=== PATIENT | female | born 1980 | race Caucasian/White ===

== ENCOUNTER → 2016-07-25 | Outpatient (CLI) | payer BC ==
[~2016-07-25] MED LIST: ADVIL 200MG TA200 MG PO; ANTIVERT 25MG25 MG PO; ASPIRIN 32325 MG/TAB PO; ASPIRIN E.C. 8181 MG PO; BUSPIRONE; BUSPIRONE5 MG PO; CEPHALEXIN; CLONAZEPAM PO; COLACE100 MG/10 PO; CYCLOBENZAPRINE10 MG PO; CYMBALTA 60MG60 MG PO; CYMBALTA30 M1 PO; CYMBALTA30 MG PO; DEPAKOTE250 MG PO; EAR DROPS; ECOTRIN325 MG PO; EFFEXOR PO; ENALAPRIL MALEA PO; ENALAPRIL10 MG PO; ENALAPRIL2.5 MG PO; FLEXERIL 1010 MG/TAB PO; FLEXERIL10 MG PO; FLONASE NASAL S16 GM NS; FLOVENT0.22 MG/AC IH; FLUTICASON0.05 MG/Ac NS; FORTAMET1000 MG PO; GLUCOPHAGE1000 MG PO; HCTZ 25MG25 MG PO; HUMULIN 70/3100 U/ML IJ; INNOPRAN XL80 MG PO; INSULIN; IUD; LAMICTAL 100MG100 MG PO; LAMICTAL 25MG T25 MG PO; LAMICTAL150 MG PO; LANTUS100 U/ML SC; LANTUS100 U/ML SQ; LASIX 40MG TABL40 MG PO; LORTAB 5/500 501 TAB PO; LYRICA 150MG C150 MG PO; LYRICA25 MG PO; METFORMIN1000 MG PO; MIDRIN PO; MIRALAX 17GM PK1 PKT PO; MIRENA52 MG IU; MOOD STABILIZER; MS CONTIN30 MG PO; MULTIPLE VITAMI1 TAB PO; NORCO 325 MG-51 TAB PO; NORCO 325 MG-7.1 TAB PO; NORCO PO; NOVOLIN R100 U/ML SQ; NOVOLOG 100U100 U/M1; NOVOLOG 100U100 U/M1 SQ; NOVOLOG FLEX100 U/ML SC; NOVOLOG FLEX100 U/ML SQ; NOVOLOG MIX 70/10 ML SC; NOVOLOG100 U/ML SC; PERCOCET 325 MG1 TA2 PO; PERCOCET 5/321 UDTAB PO; PHENERGAN 25 TA25 MG PO; PRENATAL VITAMI1 TA5 PO; PRENATAL1 TA1 PO; PRINZIDE 12.5 M1 TAB PO; PROTONIX 40MG T40 MG PO; PROVENTIL0.09 MG/A1; PROVENTIL0.09 MG/A1 IH; PULMICORT0.5 MG/21 IH; RT ADVAIR 228 DISKUS IH; SINGULAIR10 MG PO; SUMAVEL DO6 MG/0.5 M SC; TRAZADONE HYDR100 MG PO; VALIUM5 MG PO; VASOTEC5 MG PO; VIT D; WELLBUTRIN SR150 M1 PO; ZITHROMAX 250M250 MG PO; ZOFRAN 4MG T4 MG/TAB PO; lantus
== END ==
LOC: BHSO 14:57
DX: F31.81 Bipolar II disorder (principal)

== ENCOUNTER → 2016-08-29 | Outpatient (CLI) | payer BC | LOC: BHSO 14:44 | DX: F31.81 Bipolar II disorder (principal) ==

== ENCOUNTER → 2016-09-12 | Outpatient (CLI) | payer BC | LOC: BHSO 13:14 | DX: F31.32 Bipolar disorder, current episode depressed, moderate (principal) ==

== ENCOUNTER → 2016-10-13 | Outpatient (CLI) | payer BC | LOC: BHSO 13:21 | DX: F31.31 Bipolar disorder, current episode depressed, mild (principal) ==

== ENCOUNTER → 2016-11-21 | Outpatient (CLI) | payer BC | LOC: BHSO 14:02 | DX: F31.31 Bipolar disorder, current episode depressed, mild (principal) ==

== ENCOUNTER → 2016-12-05 | Outpatient (CLI) | payer BC | LOC: BHSO 14:00 | DX: F43.10 Post-traumatic stress disorder, unspecified (principal) ==

== ENCOUNTER → 2017-02-27 | Outpatient (CLI) | payer BC | LOC: BHSO 15:21 | DX: F41.0 Panic disorder [episodic paroxysmal anxiety] (principal) ==

== ENCOUNTER → 2017-03-06 | Outpatient (CLI) | payer BC | LOC: BHSO 13:46 | DX: F31.31 Bipolar disorder, current episode depressed, mild (principal) ==

== ENCOUNTER → 2017-04-03 | Outpatient (CLI) | payer BC | LOC: BHSO 13:53 | DX: F31.31 Bipolar disorder, current episode depressed, mild (principal) ==

== ENCOUNTER → 2017-04-17 | Outpatient (CLI) | payer BC | LOC: BHSO 14:04 | DX: F31.31 Bipolar disorder, current episode depressed, mild (principal) ==

== ENCOUNTER → 2017-06-12 | Outpatient (CLI) | payer BC | LOC: BHSO 13:48 | DX: F41.1 Generalized anxiety disorder (principal) ==

== ENCOUNTER → 2017-10-08 | Outpatient (CLI) | payer BC ==
[~2017-10-08] MED LIST changes: +GEODON80 MG PO; +LAMICTAL200 MG PO; +MAXZIDE-25MG TA1 TAB PO; +NAPROXEN 3375 MG/TAB PO; +PRINIVIL5 MG PO; +TRESIBA FL200 UNIT/1 SQ
== END ==
LOC: COL.LAB 10:47
DX: I20.9 Angina pectoris, unspecified (principal)

== ENCOUNTER → 2017-12-13 | Outpatient (CLI) | payer BC ==
[2017-12-13 09:38] LABS: BASO % 0.4 % (0.0-2.0); EOS # 0.1 (0.0-0.7); EOS % 0.5 % (0-4.0); GRAN % 64.1 % (42.2-75.2); HEMATOCRIT 42.3 % (37.0-47.0); HEMOGLOBIN 13.4 g/dl (12.5-16.0); LYMPH # 2.7 (1.2-3.4); LYMPH % 28.4 % (20.0-51.0); MEAN CELL VOLUME 83 fl (80.0-100.0); MEAN CORPUSCULAR HEMOGLOBIN 26 pg (27.0-31.0); MEAN CORPUSCULAR HGB CONC 32 g/dl (33.0-37.0); MEAN PLATELET VOLUME 11.1 fl (7.4-10.4); MONO # 0.6 (0.1-0.6); MONO % 6.3 % (1.7-9.3); PLATELET COUNT 305 K/mm3 (130-400); RED BLOOD COUNT 5.07 M/mm3 (4.10-5.30); REDCELL DISTRIBUTION WIDTH-CV 13.4 % (11.5-14.5)
[2017-12-13 09:47] LABS: ALANINE AMINOTRANSFERASE 27 U/L (9-52); ALBUMIN 3.7 gm/dL (3.5-5.0); ALKALINE PHOSPHATASE 84 U/L (50-136); ANION GAP 10 mmol/L (7-16); AST,SGOT 20 U/L (15-37); BILIRUBIN,TOTAL 0.7 mg/dL (0.0-1.0); BLOOD UREA NITROGEN 11 mg/dL (7-17); CALCIUM 9.2 mg/dL (8.4-10.2); CARBON DIOXIDE 27 mmol/L (22-30); CHLORIDE 102 mmol/L (98-107); CREATININE, serum 0.55 mg/dL (0.52-1.25); GLUCOSE 201 mg/dL (74-106); LIPASE 53 U/L (23-300); POTASSIUM 4.3 mmol/L (3.4-5.0); SODIUM 140 mmol/L (137-145); TOTAL PROTEIN 7.5 gm/dL (6.4-8.2)
[2017-12-13 09:52] LABS: ACETONE,SERUM NEGATIVE
[2017-12-13 09:54] LABS: OSMOLALITY-SERUM 298 Osm/kg (275-300)
[2017-12-13 12:46] LABS: CHOLESTEROL 181 mg/dL (120-200); CHOLESTEROL RISK RATIO 4.4; HDL CHOLESTEROL 41 mg/dL; LDL CHOLESTEROL 107 mg/dL; TRIGLYCERIDE 163 mg/dL
== END ==
LOC: COL.LAB 08:49
PROVIDERS: Family Medicine
DX: R10.30 Lower abdominal pain, unspecified (principal); E11.65 Type 2 diabetes mellitus with hyperglycemia

== ENCOUNTER → 2017-12-20 | Outpatient (CLI) | payer BC | LOC: COL.RAD 12-19 12:00 | DX: R10.2 Pelvic and perineal pain (principal); R11.2 Nausea with vomiting, unspecified; Z97.5 Presence of (intrauterine) contraceptive device; Z90.49 Acquired absence of other specified parts of digestive tract ==

== ENCOUNTER → 2017-12-28 | Outpatient (CLI) | payer BC | LOC: COL.RAD 12-24 08:00 | DX: Z01.812 Encounter for preprocedural laboratory examination (principal); M47.819 Spondylosis without myelopathy or radiculopathy, site unspecified; R10.31 Right lower quadrant pain; R10.32 Left lower quadrant pain; E11.65 Type 2 diabetes mellitus with hyperglycemia; Z97.5 Presence of (intrauterine) contraceptive device | CPT/HCPCS: Q9967 ==

== ENCOUNTER → 2018-01-14 | Outpatient (CLI) | payer BC | LOC: COL.RAD 14:37 | DX: M25.474 Effusion, right foot (principal); Z91.81 History of falling ==

== ENCOUNTER → 2018-02-22 | Outpatient (CLI) | payer BC | LOC: BHSO 15:45 | DX: F31.81 Bipolar II disorder (principal) | CPT/HCPCS: G0463 ==

== ENCOUNTER → 2018-04-24 | Outpatient (CLI) | payer BC | LOC: COL.LAB 08:52 | DX: I20.9 Angina pectoris, unspecified (principal) ==

== ENCOUNTER 2018-05-05 19:54 | Observation (INO) | payer BC ==
[2007-12-13 23:17] VITALS: BP 125/87
[~2018-05-05] VITALS: Ht 170.2 cm; Wt 158.8 kg
[2018-05-05 20:18] LABS: BASO # 0.1 (0.0-0.2); BASO % 0.4 % (0.0-2.0); EOS # 0.1 (0.0-0.7); EOS % 0.6 % (0-4.0); GRAN # 8.7 (1.4-6.5); HEMATOCRIT 45.6 % (37.0-47.0); LYMPH # 4.2 (1.2-3.4); LYMPH % 30.2 % (20.0-51.0); MEAN CELL VOLUME 83 fl (80.0-100.0); MEAN CORPUSCULAR HEMOGLOBIN 27 pg (27.0-31.0); MEAN CORPUSCULAR HGB CONC 33 g/dl (33.0-37.0); MEAN PLATELET VOLUME 10.9 fl (7.4-10.4); MONO # 0.9 (0.1-0.6); MONO % 6.4 % (1.7-9.3); PLATELET COUNT 417 K/mm3 (130-400); RED BLOOD COUNT 5.53 M/mm3 (4.10-5.30)
[2018-05-05 20:22] VITALS: BP 124/93; PULSE 114
[2018-05-05 20:34] LABS: ALANINE AMINOTRANSFERASE 29 U/L (9-52); ALBUMIN 4.3 gm/dL (3.5-5.0); ALKALINE PHOSPHATASE 95 U/L (50-136); ANION GAP 10 mmol/L (7-16); AST,SGOT 22 U/L (15-37); BILIRUBIN,TOTAL 0.6 mg/dL (0.0-1.0); BLOOD UREA NITROGEN 15 mg/dL (7-17); CALCIUM 9.9 mg/dL (8.4-10.2); CARBON DIOXIDE 27 mmol/L (22-30); CHLORIDE 99 mmol/L (98-107); CREATININE, serum 0.58 mg/dL (0.52-1.25); GLUCOSE 194 mg/dL (74-106); POTASSIUM 4.4 mmol/L (3.4-5.0); SODIUM 137 mmol/L (137-145); TOTAL PROTEIN 8.5 gm/dL (6.4-8.2)
[2018-05-05 20:48] LABS: TROPONIN-I < 0.012 ng/mL (0.000-0.034)
[2018-05-05 21:24] LABS: COLLECTION METHOD CLEAN CATCH
[2018-05-05 21:32] LABS: MUCOUS Present /lpf; PH 7 (5-8); URINE APPEARANCE Clear; URINE BACTERIA Rare /hpf; URINE BILIRUBIN Negative (NEGATIVE); URINE BLOOD Negative (NEGATIVE); URINE COLOR Straw; URINE GLUCOSE Negative (NEGATIVE); URINE KETONE Negative (NEGATIVE); URINE LEUKOCYTE ESTERASE Negative (NEGATIVE); URINE NITRATE Negative (NEGATIVE); URINE PROTEIN(semi-quant) Negative (NEGATIVE); URINE UROBILINOGEN Negative (NEGATIVE)
[2018-05-05 21:39] LABS: TRICYCLIC ANTIDEPRESS URINE NEGATIVE
[2018-05-05 21:57] LABS: C-REACTIVE PROTEIN 3.2 mg/dL (0.0-0.9)
[2018-05-05] MEDS ORDERED: IMDUR 30MG30 MG/TAB PO (23:27)
[2018-05-06] VITALS (8 sets, daily range): BP systolic 98–119; BP diastolic 51–79; PULSE 94–130; TEMP 97.6–98.3
[2018-05-06] MEDS ORDERED: NOVOLOG 100U100 U/M1 (01:38)
[2018-05-06] MEDS ORDERED: NOVOLOG 100U100 U/M1 SQ ×2 (01:39→01:42)
[2018-05-06] MEDS ORDERED: OZEMPIC1 MG/0.75 SQ (01:44)
[2018-05-06 05:41] LABS: BASO % 0.3 % (0.0-2.0); EOS # 0.1 (0.0-0.7); EOS % 0.6 % (0-4.0); GRAN # 6.7 (1.4-6.5); GRAN % 62.3 % (42.2-75.2); HEMATOCRIT 41.2 % (37.0-47.0); HEMOGLOBIN 13.2 g/dl (12.5-16.0); LYMPH # 3.1 (1.2-3.4); LYMPH % 29.3 % (20.0-51.0); MEAN CELL VOLUME 84 fl (80.0-100.0); MEAN CORPUSCULAR HEMOGLOBIN 27 pg (27.0-31.0); MEAN CORPUSCULAR HGB CONC 32 g/dl (33.0-37.0); MEAN PLATELET VOLUME 10.8 fl (7.4-10.4); MONO # 0.7 (0.1-0.6); MONO % 6.8 % (1.7-9.3); RED BLOOD COUNT 4.91 M/mm3 (4.10-5.30); REDCELL DISTRIBUTION WIDTH-CV 13.2 % (11.5-14.5)
[2018-05-06 05:47] LABS: PLATELET COUNT 314 K/mm3 (130-400)
[2018-05-06 06:01] LABS: CALCIUM 8.9 mg/dL (8.4-10.2); CREATININE, serum 0.59 mg/dL (0.52-1.25); MAGNESIUM 1.6 mg/dL (1.6-2.3); POTASSIUM 3.9 mmol/L (3.4-5.0)
[2018-05-06] MEDS ORDERED: ZOCOR 40MG40 MG PO (09:48)
[2018-05-06] MEDS ORDERED: FLOVENT DI100 MCG/Ac IH (09:51)
[2018-05-06] MEDS ORDERED: ASPIRIN E.C. 8181 MG PO (09:51)
[2018-05-06] MEDS ORDERED: LOPRESSOR 225 MG/TAB PO (09:52)
[2018-05-07] VITALS (11 sets, daily range): BP systolic 96–147; BP diastolic 39–91; PULSE 78–97; TEMP 97.4–97.9
[2018-05-07] MEDS ORDERED: ANTIVERT 25MG25 MG PO (14:40)
== END 2018-05-07 15:54 | disposition home or self-care (01) ==
LOC: COL.ER 19:54 → MEDICAL 23:17
PROVIDERS: Emergency Medicine; Nurse Practitioner
DX: R42 Dizziness and giddiness (principal); R11.2 Nausea with vomiting, unspecified; R00.0 Tachycardia, unspecified; G43.909 Migraine, unspecified, not intractable, without status migrainosus; E87.2 Acidosis; I10 Essential (primary) hypertension; E11.9 Type 2 diabetes mellitus without complications; Z79.4 Long term (current) use of insulin; G47.33 Obstructive sleep apnea (adult) (pediatric); G40.909 Epilepsy, unspecified, not intractable, without status epilepticus; R53.82 Chronic fatigue, unspecified; F41.9 Anxiety disorder, unspecified; F32.9 Major depressive disorder, single episode, unspecified; F31.9 Bipolar disorder, unspecified; F41.0 Panic disorder [episodic paroxysmal anxiety]; Z79.899 Other long term (current) drug therapy; E66.9 Obesity, unspecified
CPT/HCPCS: G0378; G8978-GP; G8979-GP; G8987-GO; G8988-GO; J0780; J1200; J1650; J1815; J1885; J2060; J2405; J2550; J3010; J7030

== ENCOUNTER → 2018-05-13 | Outpatient (CLI) | payer BC, OTHER ==
[~2018-05-13] MED LIST changes: +FLOVENT DI100 MCG/Ac IH; +IMDUR 30MG30 MG/TAB PO; +LOPRESSOR 225 MG/TAB PO; +OZEMPIC1 MG/0.75 SQ; +ZOCOR 40MG40 MG PO
[2018-05-13 16:15] LABS: COLLECTION METHOD CLEAN CATCH
[2018-05-13 16:21] LABS: BASO # 0.1 (0.0-0.2); BASO % 0.4 % (0.0-2.0); EOS # 0.1 (0.0-0.7); EOS % 0.4 % (0-4.0); GRAN # 8.4 (1.4-6.5); GRAN % 68.4 % (42.2-75.2); HEMATOCRIT 43.9 % (37.0-47.0); HEMOGLOBIN 14.4 g/dl (12.5-16.0); LYMPH # 3.1 (1.2-3.4); LYMPH % 24.9 % (20.0-51.0); MEAN CELL VOLUME 82 fl (80.0-100.0); MEAN CORPUSCULAR HEMOGLOBIN 27 pg (27.0-31.0); MEAN CORPUSCULAR HGB CONC 33 g/dl (33.0-37.0); MEAN PLATELET VOLUME 11.1 fl (7.4-10.4); MONO # 0.7 (0.1-0.6); MONO % 5.6 % (1.7-9.3); PLATELET COUNT 337 K/mm3 (130-400); RED BLOOD COUNT 5.34 M/mm3 (4.10-5.30); REDCELL DISTRIBUTION WIDTH-CV 12.8 % (11.5-14.5)
[2018-05-13 16:23] LABS: MUCOUS Present /lpf; PH 6 (5-8); SQUAMOUS EPITHELIAL 0-2 /hpf; URINE APPEARANCE Clear; URINE BACTERIA None Seen /hpf; URINE BILIRUBIN Negative (NEGATIVE); URINE BLOOD 1+ (NEGATIVE); URINE COLOR Yellow; URINE GLUCOSE 3+ (NEGATIVE); URINE KETONE Negative (NEGATIVE); URINE LEUKOCYTE ESTERASE Negative (NEGATIVE); URINE NITRATE Negative (NEGATIVE); URINE PROTEIN(semi-quant) 1+ (NEGATIVE); URINE UROBILINOGEN Negative (NEGATIVE)
[2018-05-13 16:45] LABS: ALANINE AMINOTRANSFERASE 40 U/L (9-52); ALBUMIN 4.3 gm/dL (3.5-5.0); ALKALINE PHOSPHATASE 91 U/L (50-136); ANION GAP 11 mmol/L (7-16); AST,SGOT 23 U/L (15-37); BILIRUBIN,TOTAL 0.7 mg/dL (0.0-1.0); BLOOD UREA NITROGEN 11 mg/dL (7-17); CALCIUM 9.8 mg/dL (8.4-10.2); CARBON DIOXIDE 24 mmol/L (22-30); CHLORIDE 100 mmol/L (98-107); CREATININE, serum 0.54 mg/dL (0.52-1.25); GLUCOSE 216 mg/dL (74-106); POTASSIUM 4.6 mmol/L (3.4-5.0); SODIUM 135 mmol/L (137-145); TOTAL PROTEIN 7.7 gm/dL (6.4-8.2)
[2018-05-13 16:51] LABS: ACETONE,SERUM NEGATIVE
[2018-05-13 16:54] LABS: HEMOGLOBIN A1C 8.7 %
[2018-05-13 17:08] LABS: LACTIC ACID 2.7 mmol/L (0.4-2.0)
[2018-05-13 17:27] LABS: OSMOLALITY-SERUM 288 Osm/kg (275-300)
== END ==
LOC: COL.LAB 15:03
PROVIDERS: Family Medicine
DX: E11.65 Type 2 diabetes mellitus with hyperglycemia (principal)

== ENCOUNTER → 2018-07-03 | Outpatient (CLI) | payer BC | LOC: COL.RAD 09:10 | DX: M25.542 Pain in joints of left hand (principal); M25.541 Pain in joints of right hand; M25.532 Pain in left wrist; M25.531 Pain in right wrist; R70.0 Elevated erythrocyte sedimentation rate; R76.0 Raised antibody titer | CPT/HCPCS: A9503 ==

== ENCOUNTER → 2018-08-22 | Outpatient (CLI) | payer BC | LOC: BHSO 13:52 | DX: F31.81 Bipolar II disorder (principal) | CPT/HCPCS: G0463 ==

== ENCOUNTER → 2018-08-30 | Outpatient (CLI) | payer BC ==
[2018-08-30 10:13] LABS: HEMATOCRIT 43.7 % (37.0-47.0); HEMOGLOBIN 14.3 g/dl (12.5-16.0); MEAN CELL VOLUME 81 fl (80.0-100.0); MEAN CORPUSCULAR HEMOGLOBIN 27 pg (27.0-31.0); MEAN CORPUSCULAR HGB CONC 33 g/dl (33.0-37.0); MEAN PLATELET VOLUME 11.3 fl (7.4-10.4); PLATELET COUNT 300 K/mm3 (130-400); RED BLOOD COUNT 5.38 M/mm3 (4.10-5.30)
[2018-08-30 10:30] LABS: COLLECTION METHOD CLEAN CATCH
[2018-08-30 10:36] LABS: ALBUMIN 4.3 gm/dL (3.5-5.0); BILIRUBIN,TOTAL 0.9 mg/dL (0.0-1.0); CALCIUM 9.8 mg/dL (8.4-10.2); CREATININE, serum 0.59 mg/dL (0.52-1.25); POTASSIUM 3.8 mmol/L (3.4-5.0); TOTAL PROTEIN 8.3 gm/dL (6.4-8.2)
[2018-08-30 10:37] LABS: MUCOUS Present /lpf; PH 5 (5-8); SQUAMOUS EPITHELIAL 0-2 /hpf; URINE APPEARANCE Clear; URINE BACTERIA None Seen /hpf; URINE BILIRUBIN Negative (NEGATIVE); URINE BLOOD Negative (NEGATIVE); URINE COLOR Yellow; URINE GLUCOSE 3+ (NEGATIVE); URINE KETONE Negative (NEGATIVE); URINE LEUKOCYTE ESTERASE Negative (NEGATIVE); URINE NITRATE Negative (NEGATIVE); URINE PROTEIN(semi-quant) Negative (NEGATIVE); URINE UROBILINOGEN Negative (NEGATIVE)
== END ==
LOC: COL.RAD 09:28
PROVIDERS: Physician Assistant Medical
DX: E11.65 Type 2 diabetes mellitus with hyperglycemia (principal); M25.512 Pain in left shoulder; M79.602 Pain in left arm; R55 Syncope and collapse; R11.2 Nausea with vomiting, unspecified; R19.7 Diarrhea, unspecified

== ENCOUNTER 2018-10-14 15:16 | Outpatient (CLI) | payer BC ==
[2007-12-13 23:17] VITALS: BP 125/87
[~2018-10-14] VITALS: Ht 170.2 cm; Wt 157.0 kg
[~2018-10-14 15:16] MED LIST changes: +LAMICTAL XR200 MG PO; -LAMICTAL200 MG PO; -PROVENTIL0.09 MG/A1; +PROVENTIL0.09 MG/A1 INH
[2018-10-14 15:29] VITALS: BP 139/82; PULSE 73; TEMP 98
[2018-10-14 15:46] LABS: HEMATOCRIT 39.4 % (37.0-47.0); HEMOGLOBIN 12.7 g/dl (12.5-16.0); MEAN CELL VOLUME 82 fl (80.0-100.0); MEAN CORPUSCULAR HEMOGLOBIN 26 pg (27.0-31.0); MEAN CORPUSCULAR HGB CONC 32 g/dl (33.0-37.0); MEAN PLATELET VOLUME 10.5 fl (7.4-10.4); PLATELET COUNT 331 K/mm3 (130-400); RED BLOOD COUNT 4.81 M/mm3 (4.10-5.30)
[2018-10-14 15:52] LABS: CALCIUM 9.4 mg/dL (8.4-10.2); CREATININE, serum 0.53 (0.52-1.25); POTASSIUM 3.5 mmol/L (3.4-5.0)
--- NOTE | 2018-10-14 17:35 | NUR ---
Pt checked her sugar with her glucose monitor.Blood glucose per her monitor is 86.Per pt request she drank 2 sprites, ate 4 crackers with 2 peanut butter packets.Patietn ambulated to bathroom independently.
[2018-10-14] MEDS ORDERED: NOVOLOG 100U100 U/M1 SQ (17:42)
--- NOTE | 2018-10-14 18:17 | NUR ---
pT ESCORTED OUT VIA WHEELCHAIR BY THIS NURSE.
== END 2018-10-14 18:17 | disposition home or self-care (01) ==
LOC: EUO 15:16
PROVIDERS: Family Medicine
DX: G43.909 Migraine, unspecified, not intractable, without status migrainosus (principal); E86.0 Dehydration
CPT/HCPCS: J7030

== ENCOUNTER 2018-10-15 08:43 | Emergency (ER) | payer BC ==
[2007-12-13 23:17] VITALS: BP 125/87
[~2018-10-15] VITALS: Ht 170.2 cm; Wt 158.2 kg
[2018-10-15 08:54] VITALS: BP 132/91; TEMP 97.9
[2018-10-15 10:47] VITALS: PULSE 79
== END 2018-10-15 10:47 | disposition home or self-care (01) ==
LOC: COL.ER 08:43
DX: G43.909 Migraine, unspecified, not intractable, without status migrainosus (principal); E11.9 Type 2 diabetes mellitus without complications; I10 Essential (primary) hypertension; F31.9 Bipolar disorder, unspecified; L93.0 Discoid lupus erythematosus; Z79.4 Long term (current) use of insulin; Z79.84 Long term (current) use of oral hypoglycemic drugs; Z79.82 Long term (current) use of aspirin; Z90.49 Acquired absence of other specified parts of digestive tract; Z87.891 Personal history of nicotine dependence
CPT/HCPCS: J1200; J1885; J2550; J2765; J7030

== ENCOUNTER 2018-10-17 08:35 | Emergency (ER) | payer BC ==
[2007-12-13 23:17] VITALS: BP 125/87
[~2018-10-17] VITALS: Ht 170.2 cm; Wt 158.2 kg
[2018-10-17 08:46] VITALS: TEMP 98.5
[2018-10-17 12:55] VITALS: BP 170/88; PULSE 88
== END 2018-10-17 12:55 | disposition home or self-care (01) ==
LOC: COL.ER 08:35
DX: G43.909 Migraine, unspecified, not intractable, without status migrainosus (principal); E11.9 Type 2 diabetes mellitus without complications; I10 Essential (primary) hypertension; Z79.4 Long term (current) use of insulin; Z90.49 Acquired absence of other specified parts of digestive tract; Z87.891 Personal history of nicotine dependence; Z79.82 Long term (current) use of aspirin
CPT/HCPCS: J1200; J1885; J2060; J2765; J7030

== ENCOUNTER → 2018-10-30 | Outpatient (CLI) | payer BC | LOC: BHSO 10:43 | DX: F31.81 Bipolar II disorder (principal) | CPT/HCPCS: G0463 ==

== ENCOUNTER 2018-11-02 21:52 | Emergency (ER) | payer BC ==
[2007-12-13 23:17] VITALS: BP 125/87
[~2018-11-02] VITALS: Ht 170.2 cm; Wt 159.1 kg
[2018-11-02 21:58] VITALS: TEMP 99.3
[2018-11-02 22:50] LABS: BASO % 0.2 % (0.0-2.0); EOS % 0.2 % (0-4.0); GRAN % 67.6 % (42.2-75.2); HEMOGLOBIN 12.1 g/dl (12.5-16.0); LYMPH # 3.5 (1.2-3.4); LYMPH % 26.4 % (20.0-51.0); MEAN CELL VOLUME 83 fl (80.0-100.0); MEAN CORPUSCULAR HEMOGLOBIN 26 pg (27.0-31.0); MEAN CORPUSCULAR HGB CONC 32 g/dl (33.0-37.0); MEAN PLATELET VOLUME 10.9 fl (7.4-10.4); MONO # 0.7 (0.1-0.6); PLATELET COUNT 266 K/mm3 (130-400); RED BLOOD COUNT 4.58 M/mm3 (4.10-5.30); REDCELL DISTRIBUTION WIDTH-CV 13.5 % (11.5-14.5)
[2018-11-02 23:00] LABS: ALANINE AMINOTRANSFERASE 19 U/L (9-52); ALBUMIN 3.8 gm/dL (3.5-5.0); ALKALINE PHOSPHATASE 94 U/L (50-136); ANION GAP 12 mmol/L (7-16); AST,SGOT 24 U/L (15-37); BILIRUBIN,TOTAL 0.4 mg/dL (0.0-1.0); BLOOD UREA NITROGEN 11 mg/dL (7-17); CALCIUM 9.3 mg/dL (8.4-10.2); CARBON DIOXIDE 25 mmol/L (22-30); CHLORIDE 100 mmol/L (98-107); CREATININE, serum 0.64 (0.52-1.25); GLUCOSE 286 mg/dL (74-106); POTASSIUM 3.7 mmol/L (3.4-5.0); SODIUM 136 mmol/L (137-145); TOTAL PROTEIN 7.2 gm/dL (6.4-8.2)
[2018-11-02 23:13] LABS: TROPONIN-I < 0.012 ng/mL (0.000-0.035)
[2018-11-02] MEDS ORDERED: ZITHROMAX Z PA250 MG PO (23:26)
[2018-11-02] MEDS ORDERED: TESSALON P100 MG/CAP PO (23:33)
[2018-11-03 00:44] VITALS: BP 105/58; PULSE 104
== END 2018-11-03 00:45 | disposition home or self-care (01) ==
LOC: COL.ER 21:52
PROVIDERS: Emergency Medicine
DX: R04.2 Hemoptysis (principal); R07.81 Pleurodynia; R00.0 Tachycardia, unspecified; E11.9 Type 2 diabetes mellitus without complications; I10 Essential (primary) hypertension; J45.909 Unspecified asthma, uncomplicated; Z90.49 Acquired absence of other specified parts of digestive tract; Z98.890 Other specified postprocedural states; Z87.891 Personal history of nicotine dependence; E78.5 Hyperlipidemia, unspecified; F31.9 Bipolar disorder, unspecified; E66.9 Obesity, unspecified; Z79.82 Long term (current) use of aspirin; Z79.4 Long term (current) use of insulin
CPT/HCPCS: A4216; J0696; J2930; J3475; J7030

== ENCOUNTER → 2019-02-04 | Outpatient (CLI) | payer BC ==
[~2019-02-04] MED LIST changes: +TESSALON P100 MG/CAP PO; +ZITHROMAX Z PA250 MG PO
== END ==
LOC: BHSO 07:46
DX: F31.81 Bipolar II disorder (principal)
CPT/HCPCS: G0463

== ENCOUNTER → 2019-04-07 | Outpatient (CLI) | payer BC | LOC: BHSO 07:54 | DX: F31.81 Bipolar II disorder (principal) | CPT/HCPCS: G0463 ==

== ENCOUNTER 2019-06-09 10:24 | Outpatient (CLI) | payer BC ==
[~2019-06-09] VITALS: Ht 170.2 cm; Wt 156.0 kg
[~2019-06-09 10:24] MED LIST changes: +LAMICTAL XR100 MG PO; -LAMICTAL XR200 MG PO
[2019-06-09 10:57] VITALS: BP 127/74; PULSE 100; TEMP 98.3
[2019-06-09 12:16] LABS: BASO % 0.4 % (0.0-2.0); EOS # 0.1 (0.0-0.7); EOS % 1.7 % (0-4.0); GRAN # 5.5 (1.4-6.5); GRAN % 68.3 % (42.2-75.2); HEMATOCRIT 42.7 % (37.0-47.0); HEMOGLOBIN 13.7 g/dl (12.5-16.0); LYMPH # 1.8 (1.2-3.4); MEAN CELL VOLUME 83 fl (80.0-100.0); MEAN CORPUSCULAR HEMOGLOBIN 27 pg (27.0-31.0); MEAN CORPUSCULAR HGB CONC 32 g/dl (33.0-37.0); MEAN PLATELET VOLUME 11.3 fl (7.4-10.4); MONO # 0.6 (0.1-0.6); MONO % 7.2 % (1.7-9.3); PLATELET COUNT 270 K/mm3 (130-400); RED BLOOD COUNT 5.17 M/mm3 (4.10-5.30); REDCELL DISTRIBUTION WIDTH-CV 13.4 % (11.5-14.5)
[2019-06-09 12:24] LABS: ACETONE,SERUM NEGATIVE
[2019-06-09 12:26] LABS: ALANINE AMINOTRANSFERASE 24 U/L (9-52); ALBUMIN 4.1 gm/dL (3.5-5.0); ALKALINE PHOSPHATASE 98 U/L (50-136); ANION GAP 12 mmol/L (7-16); AST,SGOT 24 U/L (15-37); BILIRUBIN,TOTAL 0.4 mg/dL (0.0-1.0); BLOOD UREA NITROGEN 9 mg/dL (7-17); CALCIUM 9.4 mg/dL (8.4-10.2); CARBON DIOXIDE 25 mmol/L (22-30); CHLORIDE 101 mmol/L (98-107); GLUCOSE 295 mg/dL (74-106); POTASSIUM 4.2 mmol/L (3.4-5.0); SODIUM 138 mmol/L (137-145); TOTAL PROTEIN 7.6 gm/dL (6.4-8.2)
[2019-06-09] MEDS ORDERED: HCTZ 25MG TAB25 MG PO (12:39)
[2019-06-09] MEDS ORDERED: LIPITOR 80MG80 MG PO (12:40)
[2019-06-09] MEDS ORDERED: PRIL40 PO (12:42)
[2019-06-09] MEDS ORDERED: FLOVENT DI250 MCG/Ac IH (12:42)
[2019-06-09] MEDS ORDERED: PRINIVIL2.5 MG PO (12:43)
[2019-06-09] MEDS ORDERED: EPIPEN 2-PAK1 MG/ML IM (12:43)
[2019-06-09] MEDS ORDERED: CARAFATE 1GM1 G PO (12:44)
[2019-06-09] MEDS ORDERED: ALBUTEROL0.83 MG/ML IH (12:45)
[2019-06-09 12:51] LABS: COLLECTION METHOD CLEAN CATCH
[2019-06-09] MEDS ORDERED: PHENERGAN 25 TA25 MG PO (12:53)
[2019-06-09] MEDS ORDERED: ZOFRAN ODT8 MG PO (12:54)
[2019-06-09] MEDS ORDERED: PRENATAL TABLET PO (12:55)
[2019-06-09] MEDS ORDERED: KLONOPIN 1MG1 MG PO (12:56)
[2019-06-09] MEDS ORDERED: EFFEXOR XR37.5 MG/CA PO (12:56)
[2019-06-09] MEDS ORDERED: ABILIFY 10MG TA10 MG PO (12:57)
[2019-06-09] MEDS ORDERED: PLAQUENIL 200M200 MG PO (12:57)
[2019-06-09 13:17] LABS: PH 5 (5-8); URINE APPEARANCE Clear; URINE BILIRUBIN Negative (NEGATIVE); URINE BLOOD Negative (NEGATIVE); URINE COLOR Yellow; URINE GLUCOSE 3+ (NEGATIVE); URINE KETONE Negative (NEGATIVE); URINE LEUKOCYTE ESTERASE Negative (NEGATIVE); URINE NITRATE Negative (NEGATIVE); URINE PROTEIN(semi-quant) 1+ (NEGATIVE); URINE RBC 0-2 /hpf; URINE UROBILINOGEN Negative (NEGATIVE)
[2019-06-09 13:18] LABS: MUCOUS Present /lpf
[2019-06-09 13:47] VITALS: BP 120/66; PULSE 88; TEMP 98.1
== END 2019-06-09 14:56 | disposition home or self-care (01) ==
LOC: EUO 10:24
PROVIDERS: Family Medicine
DX: E11.65 Type 2 diabetes mellitus with hyperglycemia (principal); J40 Bronchitis, not specified as acute or chronic
CPT/HCPCS: J2405; J7030

== ENCOUNTER → 2019-07-14 | Outpatient (CLI) | payer BC ==
[~2019-07-14] MED LIST changes: +ABILIFY 10MG TA10 MG PO; +ALBUTEROL0.83 MG/ML IH; +CARAFATE 1GM1 G PO; +EFFEXOR XR37.5 MG/CA PO; +EPIPEN 2-PAK1 MG/ML IM; +FLOVENT DI250 MCG/Ac IH; +HCTZ 25MG TAB25 MG PO; +KLONOPIN 1MG1 MG PO; +LIPITOR 80MG80 MG PO; +PLAQUENIL 200M200 MG PO; +PRENATAL TABLET PO; +PRIL40 PO; +PRINIVIL2.5 MG PO; +ZOFRAN ODT8 MG PO
== END ==
LOC: BHSO 08:22
DX: F31.81 Bipolar II disorder (principal)
CPT/HCPCS: G0463

== ENCOUNTER → 2019-08-06 | Outpatient (CLI) | payer BC | LOC: COL.LAB 15:39 | PROVIDERS: Family Medicine | DX: N91.2 Amenorrhea, unspecified (principal) ==

== ENCOUNTER → 2020-03-17 | Outpatient (CLI) | payer BC ==
[2020-03-17 09:32] LABS: BASO % 0.3 % (0.0-2.0); EOS # 0.1 (0.0-0.7); EOS % 0.9 % (0-4.0); GRAN # 6.4 (1.4-6.5); GRAN % 64.3 % (42.2-75.2); HEMOGLOBIN 14.3 g/dl (12.5-16.0); LYMPH # 2.8 (1.2-3.4); LYMPH % 27.9 % (20.0-51.0); MEAN CELL VOLUME 83 fl (80.0-100.0); MEAN CORPUSCULAR HEMOGLOBIN 26 pg (27.0-31.0); MEAN CORPUSCULAR HGB CONC 32 g/dl (33.0-37.0); MEAN PLATELET VOLUME 11.1 fl (7.4-10.4); MONO # 0.6 (0.1-0.6); MONO % 6.2 % (1.7-9.3); PLATELET COUNT 305 K/mm3 (130-400); RED BLOOD COUNT 5.43 M/mm3 (4.10-5.30); REDCELL DISTRIBUTION WIDTH-CV 13.3 % (11.5-14.5)
[2020-03-17 09:49] LABS: ALBUMIN 4.5 gm/dL (3.5-5.0); BILIRUBIN,TOTAL 0.9 mg/dL (0.0-1.0); C-REACTIVE PROTEIN 2.8 mg/dL (0.0-0.9); CALCIUM 9.8 mg/dL (8.4-10.2); CREATININE, serum 0.53 (0.52-1.25); POTASSIUM 4.6 mmol/L (3.4-5.0); TOTAL PROTEIN 8.2 gm/dL (6.4-8.2)
[2020-03-17 09:58] LABS: ERYTHROCYTE SEDIMENTATION RATE 23 mm/hr (0-20)
[2020-03-17 10:17] LABS: THYROID STIMULATING HORMONE 1.94 uIU/mL (0.465-4.680)
== END ==
LOC: COL.LAB → COL.RAD 08:44
PROVIDERS: Family Medicine
DX: R07.9 Chest pain, unspecified (principal); R10.9 Unspecified abdominal pain

== ENCOUNTER → 2020-05-13 | Outpatient (CLI) | payer BC | LOC: BHSO 07:59 | DX: F31.81 Bipolar II disorder (principal) | CPT/HCPCS: G0463 ==

== ENCOUNTER → 2020-07-22 | Outpatient (CLI) | payer BC, OTHER | LOC: COL.RAD 07-20 08:00 | DX: K58.9 Irritable bowel syndrome, unspecified (principal); K20.90 Esophagitis, unspecified without bleeding | CPT/HCPCS: A9541 ==

== ENCOUNTER 2020-08-16 18:13 | Emergency (ER) | payer BC ==
[2007-12-13 23:17] VITALS: BP 125/87
[~2020-08-16] VITALS: Ht 170.2 cm; Wt 147.7 kg
[2020-08-16 18:16] VITALS: TEMP 98.7
[2020-08-16 18:42] LABS: BASO % 0.3 % (0.0-2.0); EOS % 0.3 % (0-4.0); GRAN # 8.1 (1.4-6.5); GRAN % 69.2 % (42.2-75.2); HEMATOCRIT 43.9 % (37.0-47.0); HEMOGLOBIN 14.1 g/dl (12.5-16.0); LYMPH # 2.9 (1.2-3.4); LYMPH % 24.5 % (20.0-51.0); MEAN CELL VOLUME 82 fl (80.0-100.0); MEAN CORPUSCULAR HEMOGLOBIN 27 pg (27.0-31.0); MEAN CORPUSCULAR HGB CONC 32 g/dl (33.0-37.0); MEAN PLATELET VOLUME 10.9 fl (7.4-10.4); MONO # 0.6 (0.1-0.6); MONO % 5.2 % (1.7-9.3); PLATELET COUNT 299 K/mm3 (130-400); RED BLOOD COUNT 5.33 M/mm3 (4.10-5.30); REDCELL DISTRIBUTION WIDTH-CV 12.9 % (11.5-14.5)
[2020-08-16 18:55] LABS: ALANINE AMINOTRANSFERASE 23 U/L (4-34); ALBUMIN 4.2 gm/dL (3.5-5.0); ALKALINE PHOSPHATASE 94 U/L (50-136); ANION GAP 11 mmol/L (7-16); AST,SGOT 23 U/L (15-37); BILIRUBIN,TOTAL 0.7 mg/dL (0.0-1.0); BLOOD UREA NITROGEN 10 mg/dL (7-17); CALCIUM 9.6 mg/dL (8.4-10.2); CARBON DIOXIDE 24 mmol/L (22-30); CHLORIDE 99 mmol/L (98-107); CREATININE, serum 0.44 (0.52-1.25); GLUCOSE 224 mg/dL (74-106); POTASSIUM 3.9 mmol/L (3.4-5.0); SODIUM 134 mmol/L (137-145); TOTAL PROTEIN 7.7 gm/dL (6.4-8.2)
[2020-08-16 19:08] LABS: TROPONIN-I < 0.012 ng/mL (0.000-0.035)
[2020-08-16 22:39] VITALS: BP 151/104; PULSE 101
== END 2020-08-16 22:44 | disposition home or self-care (01) ==
LOC: COL.ER 18:13
PROVIDERS: Nurse Practitioner
DX: R07.89 Other chest pain (principal); I10 Essential (primary) hypertension; E78.5 Hyperlipidemia, unspecified; E11.9 Type 2 diabetes mellitus without complications; F32.9 Major depressive disorder, single episode, unspecified; E66.9 Obesity, unspecified; M32.9 Systemic lupus erythematosus, unspecified; F41.9 Anxiety disorder, unspecified; F17.210 Nicotine dependence, cigarettes, uncomplicated; Z88.8 Allergy status to other drugs, medicaments and biological substances; Z79.4 Long term (current) use of insulin; Z79.82 Long term (current) use of aspirin

== ENCOUNTER 2020-10-29 13:43 | Outpatient (CLI) | payer BC ==
[2007-12-13 23:17] VITALS: BP 125/87
[~2020-10-29] VITALS: Ht 170.2 cm; Wt 155.4 kg
[2020-10-29 13:50] VITALS: BP 120/89; PULSE 98; TEMP 98.1
[2020-10-29 14:16] LABS: HEMATOCRIT 41.4 % (37.0-47.0); HEMOGLOBIN 13.5 g/dl (12.5-16.0); MEAN CELL VOLUME 83 fl (80.0-100.0); MEAN CORPUSCULAR HEMOGLOBIN 27 pg (27.0-31.0); MEAN CORPUSCULAR HGB CONC 33 g/dl (33.0-37.0); PLATELET COUNT 264 K/mm3 (130-400); RED BLOOD COUNT 5.02 M/mm3 (4.10-5.30); REDCELL DISTRIBUTION WIDTH-CV 13.4 % (11.5-14.5)
[2020-10-29 14:25] LABS: ACETONE,SERUM NEGATIVE
[2020-10-29 14:26] LABS: ALANINE AMINOTRANSFERASE 23 U/L (4-34); ALBUMIN 3.9 gm/dL (3.5-5.0); ALKALINE PHOSPHATASE 88 U/L (50-136); ANION GAP 8 mmol/L (7-16); AST,SGOT 23 U/L (15-37); BILIRUBIN,TOTAL 0.4 mg/dL (0.0-1.0); BLOOD UREA NITROGEN 15 mg/dL (7-17); CALCIUM 9.1 mg/dL (8.4-10.2); CARBON DIOXIDE 25 mmol/L (22-30); CHLORIDE 99 mmol/L (98-107); GLUCOSE 317 mg/dL (74-106); POTASSIUM 3.9 mmol/L (3.4-5.0); SODIUM 132 mmol/L (137-145); TOTAL PROTEIN 7.4 gm/dL (6.4-8.2)
== END 2020-10-29 16:15 | disposition home or self-care (01) ==
LOC: EUO 13:43
PROVIDERS: Physician Assistant Medical
DX: E11.65 Type 2 diabetes mellitus with hyperglycemia (principal); R82.4 Acetonuria; M25.50 Pain in unspecified joint; R53.83 Other fatigue
CPT/HCPCS: J7030

== ENCOUNTER 2020-12-07 18:06 | Emergency (ER) | payer BC ==
[2007-12-13 23:17] VITALS: BP 125/87
[~2020-12-07] VITALS: Ht 170.2 cm; Wt 150.0 kg
[2020-12-07 19:07] LABS: COLLECTION METHOD CLEAN CATCH
[2020-12-07 19:13] LABS: BASO # 0.1 (0.0-0.2); BASO % 0.4 % (0.0-2.0); EOS # 0.1 (0.0-0.7); EOS % 0.7 % (0-4.0); GRAN # 9.2 (1.4-6.5); GRAN % 67.5 % (42.2-75.2); HEMATOCRIT 44.5 % (37.0-47.0); HEMOGLOBIN 14.4 g/dl (12.5-16.0); LYMPH # 3.4 (1.2-3.4); LYMPH % 25.2 % (20.0-51.0); MEAN CELL VOLUME 83 fl (80.0-100.0); MEAN CORPUSCULAR HEMOGLOBIN 27 pg (27.0-31.0); MEAN CORPUSCULAR HGB CONC 32 g/dl (33.0-37.0); MEAN PLATELET VOLUME 10.8 fl (7.4-10.4); MONO # 0.7 (0.1-0.6); MONO % 5.5 % (1.7-9.3); PLATELET COUNT 334 K/mm3 (130-400); RED BLOOD COUNT 5.38 M/mm3 (4.10-5.30); REDCELL DISTRIBUTION WIDTH-CV 13.2 % (11.5-14.5)
[2020-12-07 19:17] LABS: MUCOUS Present /lpf; PH 5 (5-8); URINE APPEARANCE Hazy; URINE BACTERIA None Seen /hpf; URINE BILIRUBIN Negative (NEGATIVE); URINE BLOOD 1+ (NEGATIVE); URINE COLOR Yellow; URINE GLUCOSE 1+ (NEGATIVE); URINE KETONE Negative (NEGATIVE); URINE LEUKOCYTE ESTERASE Negative (NEGATIVE); URINE NITRATE Negative (NEGATIVE); URINE PROTEIN(semi-quant) Negative (NEGATIVE); URINE RBC 0-2 /hpf; URINE UROBILINOGEN Negative (NEGATIVE); URINE WBC 0-2 /hpf
[2020-12-07 19:25] LABS: ALBUMIN 4.2 gm/dL (3.5-5.0); BILIRUBIN,TOTAL 0.6 mg/dL (0.0-1.0); CALCIUM 9.5 mg/dL (8.4-10.2); CREATININE, serum 0.42 (0.52-1.25); POTASSIUM 4.1 mmol/L (3.4-5.0); TOTAL PROTEIN 8.2 gm/dL (6.4-8.2)
[2020-12-07] MEDS ORDERED: NORCO 325 MG-51 TAB PO (21:24)
[2020-12-07] MEDS ORDERED: ZOFRAN 4MG T4 MG/TAB PO (21:24)
[2020-12-07 21:34] VITALS: BP 122/82; PULSE 91; TEMP 98.6
== END 2020-12-07 21:34 | disposition home or self-care (01) ==
LOC: COL.ER 18:06
PROVIDERS: Nurse Practitioner Primary Care
DX: E11.65 Type 2 diabetes mellitus with hyperglycemia (principal); A08.4 Viral intestinal infection, unspecified; F31.9 Bipolar disorder, unspecified; Z87.891 Personal history of nicotine dependence; Z79.4 Long term (current) use of insulin; Z79.899 Other long term (current) drug therapy
CPT/HCPCS: J1885; J2270; J2405; J7030; Q9967